=== PATIENT | male | born 1975 | race Two or more races ===

== ENCOUNTER 2022-10-23 02:18 | Emergency (ER) | payer OTHER ==
[~2022-10-23] VITALS: Ht 170.2 cm; Wt 81.2 kg
[2022-10-23] MEDS ORDERED: KETO10TA2 PO (06:46)
== END 2022-10-23 06:49 ==
LOC: ER 02:18
DX: M94.0 Chondrocostal junction syndrome [Tietze] (principal); F41.8 Other specified anxiety disorders; R07.89 Other chest pain